=== PATIENT | male | born 1945 | race African-American/Black ===

== ENCOUNTER 2022-03-24 01:39 | Inpatient (IN) ==
[2022-03-24 02:49] LABS: Basophils % 0.4 %; Eosinophils # 0.3 K/mcL (0.0-0.6); Eosinophils % 6.8 %; Hematocrit 38.9 % (37.5-50.1); Hemoglobin 12.2 g/dL (12.9-16.9); Immature Granulocytes % 0.2 % (0-4); Lymphocytes # 1.6 K/mcL (0.6-4.6); Mean Corpuscular HGB Conc 31.4 g/dL (31.6-35.5); Mean Corpuscular Hemoglobin 26.9 pg (28.0-33.3); Mean Corpuscular Volume 85.7 fL (83.0-100.0); Mean Platelet Volume 11.4 fL (9.4-12.4); Monocytes # 0.5 K/mcL (0.0-1.3); Monocytes % 11.2 %; Neutrophils # 2.4 K/mcL (1.6-8.9); Nucleated Red Blood Cells 0.4 /100 WBC (0); Platelet Count 167 K/mcL (140-400); Red Blood Count 4.54 M/mcL (4.19-5.50); Red Cell Distribution Width 16.4 % (11.5-14.5); Segmented Neutrophils % 49.4 %; White Blood Count 4.8 K/mcL (4.3-11.1)
[2022-03-24 03:09] LABS: BUN/Creatinine Ratio 17 (6-26); Blood Urea Nitrogen 24 mg/dL (8-23); Calcium 9.6 mg/dL (8.6-10.3); Carbon Dioxide 23 mEq/L (23-29); Chloride 105 mEq/L (98-107); Glucose 108 mg/dL (70-105); Osmolality,Calculated 289 (280-300); Sodium 137 mEq/L (136-145); eGFR For African Americans > 60 (> 60); eGFR For Non-African Americans 50 (> 60)
[2022-03-24 03:18] LABS: Troponin I 0.22 ng/mL (< 0.04)
[2022-03-24] MEDS ORDERED: Aspirin 325 MG TABLET PO ONE (03:22)
[2022-03-24 03:46] LABS: Influenza A PCR Negative (Negative); Influenza B PCR Negative (Negative); Resp. Syncytial Virus PCR Negative (Negative)
[2022-03-24 03:54] LABS: SARS-CoV-2 by PCR (In House) Negative (Negative)
[2022-03-24] MEDS ORDERED: *HR* Heparin 5,000 UNIT/ML VIAL IVP ONE (04:35)
[2022-03-24] MEDS ORDERED: *HR* Heparin 5,000 UNIT/ML VIAL IVP PRN ×2 (04:35)
[2022-03-24] MEDS: Heparin 25,000UNIT/250ML 1/2NS 25,000 UNIT/250 ML IV.SOLN IVC SCH (04:44)
[2022-03-24] MEDS ORDERED: Perflutren Lipid Microsphere 1.3 ML in 0.9 % Sodium Chloride 8.7 ML IVP PRN (05:18)
[2022-03-24] MEDS ORDERED: Dextrose 4 GM Chewable Tablets PO PRN ×2 (05:20)
[2022-03-24] MEDS ORDERED: D5% in Water 1,000 ML IVC PRN (05:20)
[2022-03-24] MEDS ORDERED: *HR* Dextrose 50 % in Water (Syg) 50 ML SYRINGE IVP PRN (05:20)
[2022-03-24] MEDS ORDERED: Furosemide 20 MG/2 ML VIAL IVP ONE (05:51)
[2022-03-24] MEDS ORDERED: Ipratropium/Albuterol Neb 3 ML IH PRN (06:03)
[2022-03-24 07:16] LABS: INR 1.4; Prothrombin Time 15.4 Seconds (9.4-12.1)
[2022-03-24] MEDS ORDERED: Metoprolol XL (24 HR) Succ 25 MG TAB.ER.24H PO SCH (07:27)
[2022-03-24 07:51] LABS: Folate > 22.3 ng/mL (3.0-16.0); Vitamin B12 884 pg/mL (250-1100)
[2022-03-24] MEDS: Furosemide 20 MG/2 ML VIAL IVP SCH ×2 (08:05→20:17)
[2022-03-24 08:16] LABS: Estimated Average Glucose 123 mg/dl; Hemoglobin A1C 5.9 %
[2022-03-24] MEDS: Multivit/Ca/Min/Fe/FA 1 TAB TABLET PO SCH (08:36)
[2022-03-24] MEDS: Thiamine (B-1) 100 MG TABLET PO SCH (08:37)
[2022-03-24] MEDS: predniSONE 20 MG TABLET PO SCH (08:37)
[2022-03-24] MEDS ORDERED: Chlorhexidine Rinse 15 ML MOUTHWASH MM SCH (09:00)
[2022-03-24 10:12] LABS: Bilirubin,Urine Negative (Negative); Blood,Urine Negative (Negative); Clarity,Urine Clear (Clear); Color,Urine Colorless (Yellow); Glucose,Urine (UA) Normal (Normal); Ketones,Urine Negative (Negative); Leukocyte Esterase,Urine Negative (Negative); Nitrite,Urine Negative (Negative); Protein,Urine Negative (Neg-Trace); Specific Gravity,Urine 1.008 (1.010-1.025); Urobilinogen,Urine Normal (Normal)
[2022-03-24 10:33] LABS: Amphetamine Screen,Urine Negative ng/mL (Cutoff=1000); Barbiturate Screen,Urine Negative ng/mL (Cutoff=200); Benzodiazepines Screen,Urine Negative ng/mL (Cutoff=200); Cannabinoid Screen,Urine Negative ng/mL (Cutoff = 50); Cocaine Screen,Urine Negative ng/mL (Cutoff= 300); Opiate Screen,Urine Negative ng/mL (Cutoff=300); Phencyclidine Screen,Urine Negative ng/mL (Cutoff=25)
[2022-03-24] MEDS: Ipratropium/Albuterol Neb 3 ML IH SCH ×3 (11:06→20:35)
[2022-03-24] MEDS: Budesonide/Formoterol 160/4.5 1 PUFF INH IH SCH ×2 (11:08→20:35)
[2022-03-24 12:22] LABS: Heparin anti-factor XA UFH 0.64 IU/mL (0.30-0.70)
[2022-03-24 12:25] LABS: Activated Partial Thrombo Time 96.8 Seconds (26.0-36.0)
[2022-03-24 12:39] LABS: Troponin I 0.17 ng/mL (< 0.04)
[2022-03-24 13:01] LABS: Chol/HDL Ratio 2.1 (0-4.9); Thyroid Stimulating Hormone 2.105 mcIU/mL (0.340-5.600)
[2022-03-24] MEDS ORDERED: GuaiFENesin Liq 200 MG/10 ML UDC PO PRN (15:24)
[2022-03-24] MEDS: Mirtazapine 15 MG TABLET PO SCH (20:17)
[2022-03-25 03:35] LABS: Basophils % 0.2 %; Hematocrit 38.6 % (37.5-50.1); Hemoglobin 11.7 g/dL (12.9-16.9); Immature Granulocytes % 0.3 % (0-4); Lymphocytes % 16.3 %; Mean Corpuscular HGB Conc 30.3 g/dL (31.6-35.5); Mean Corpuscular Hemoglobin 26.1 pg (28.0-33.3); Mean Platelet Volume 11.4 fL (9.4-12.4); Monocytes # 0.6 K/mcL (0.0-1.3); Monocytes % 10.4 %; Neutrophils # 4.3 K/mcL (1.6-8.9); Platelet Count 179 K/mcL (140-400); Red Blood Count 4.49 M/mcL (4.19-5.50); Red Cell Distribution Width 16.4 % (11.5-14.5); Segmented Neutrophils % 72.8 %; White Blood Count 5.9 K/mcL (4.3-11.1)
[2022-03-25 03:58] LABS: BUN/Creatinine Ratio 19 (6-26); Blood Urea Nitrogen 23 mg/dL (8-23); Calcium 9.5 mg/dL (8.6-10.3); Carbon Dioxide 21 mEq/L (23-29); Chloride 105 mEq/L (98-107); Glucose 131 mg/dL (70-105); Magnesium 2.2 mg/dL (1.6-2.6); Osmolality,Calculated 285 (280-300); Phosphorous 3.1 mg/dL (2.7-4.5); Potassium 4.3 mEq/L (3.5-5.1); Sodium 135 mEq/L (136-145); eGFR For African Americans > 60 (> 60); eGFR For Non-African Americans 59 (> 60)
[2022-03-25] MEDS: Ipratropium/Albuterol Neb 3 ML IH SCH ×4 (04:02→21:53)
[2022-03-25] MEDS: Furosemide 20 MG/2 ML VIAL IVP SCH (08:03)
[2022-03-25] MEDS: Heparin 25,000UNIT/250ML 1/2NS 25,000 UNIT/250 ML IV.SOLN IVC SCH (08:04)
[2022-03-25] MEDS: predniSONE 20 MG TABLET PO SCH (08:07)
[2022-03-25] MEDS: Cholecalciferol (D-3) 1,000 UNIT (25MCG) TABLET PO SCH (08:07)
[2022-03-25] MEDS: Thiamine (B-1) 100 MG TABLET PO SCH (08:07)
[2022-03-25] MEDS: Multivit/Ca/Min/Fe/FA 1 TAB TABLET PO SCH (08:07)
[2022-03-25] MEDS: Aspirin 81 MG TAB.CHEW PO SCH (08:07)
[2022-03-25] MEDS ORDERED: Metoprolol XL (24 HR) Succ 50 MG TAB.ER.24H PO SCH (09:00)
[2022-03-25] MEDS: Budesonide/Formoterol 160/4.5 1 PUFF INH IH SCH ×2 (10:17→21:53)
[2022-03-25] MEDS: Azithromycin 250 MG TABLET PO SCH (12:13)
[2022-03-25] MEDS: Furosemide 20 MG TABLET PO SCH (16:23)
[2022-03-25] MEDS: Mirtazapine 15 MG TABLET PO SCH (20:42)
[2022-03-25] MEDS: Metoprolol XL (24 HR) Succ 50 MG TAB.ER.24H PO SCH (20:42)
[2022-03-26 02:18] LABS: Hematocrit 36.5 % (37.5-50.1); Hemoglobin 11.2 g/dL (12.9-16.9); Mean Corpuscular HGB Conc 30.7 g/dL (31.6-35.5); Mean Corpuscular Hemoglobin 26.4 pg (28.0-33.3); Mean Corpuscular Volume 85.9 fL (83.0-100.0); Mean Platelet Volume 11.6 fL (9.4-12.4); Platelet Count 186 K/mcL (140-400); Red Blood Count 4.25 M/mcL (4.19-5.50); Red Cell Distribution Width 16.8 % (11.5-14.5); White Blood Count 7.1 K/mcL (4.3-11.1)
[2022-03-26 02:34] LABS: BUN/Creatinine Ratio 23 (6-26); Blood Urea Nitrogen 27 mg/dL (8-23); Calcium 9.3 mg/dL (8.6-10.3); Carbon Dioxide 21 mEq/L (23-29); Chloride 104 mEq/L (98-107); Glucose 132 mg/dL (70-105); Magnesium 2.1 mg/dL (1.6-2.6); Osmolality,Calculated 285 (280-300); Potassium 4.4 mEq/L (3.5-5.1); Sodium 134 mEq/L (136-145); eGFR For African Americans > 60 (> 60); eGFR For Non-African Americans > 60 (> 60)
[2022-03-26] MEDS: Ipratropium/Albuterol Neb 3 ML IH SCH ×2 (04:29→10:37)
[2022-03-26] MEDS: predniSONE 20 MG TABLET PO SCH (08:24)
[2022-03-26] MEDS: Furosemide 20 MG TABLET PO SCH (08:24)
[2022-03-26] MEDS: Thiamine (B-1) 100 MG TABLET PO SCH (08:24)
[2022-03-26] MEDS: Cholecalciferol (D-3) 1,000 UNIT (25MCG) TABLET PO SCH (08:24)
[2022-03-26] MEDS: Multivit/Ca/Min/Fe/FA 1 TAB TABLET PO SCH (08:24)
[2022-03-26] MEDS: Azithromycin 250 MG TABLET PO SCH (08:24)
[2022-03-26] MEDS: Metoprolol XL (24 HR) Succ 50 MG TAB.ER.24H PO SCH (08:24)
[2022-03-26] MEDS: Aspirin 81 MG TAB.CHEW PO SCH (08:24)
[2022-03-26] MEDS: Budesonide/Formoterol 160/4.5 1 PUFF INH IH SCH (10:38)
[2022-03-26 10:48] VITALS: BP 116/76; PULSE 86; TEMP 97.8; O2SAT 95
[2022-03-26 11:58] LABS: Influenza A PCR Negative (Negative); Influenza B PCR Negative (Negative); Resp. Syncytial Virus PCR Negative (Negative)
[2022-03-26 12:20] LABS: SARS-CoV-2 by PCR (In House) Negative (Negative)
== END 2022-03-26 13:47 | DRG 190 ==
LOC: 3BNU 01:39 → EMEROOARM 01:39 → SUATTDRO 04:42 → 3BNU 04:48
PROVIDERS: ADMIT Internal Medicine; ATTEND Internal Medicine

== ENCOUNTER 2022-08-21 02:06 | Inpatient (IN) ==
[2022-08-21 03:46] LABS: Albumin 3.8 g/dL (3.5-5.7); Albumin/Globulin Ratio 1.1 (1.1-2.2); Bilirubin,Total 0.4 mg/dL (0.3-1.0); Calcium 9.8 mg/dL (8.6-10.3); Globulin 3.5 g/dL (2.4-3.5); Potassium 4.2 mEq/L (3.5-5.1); Total Protein 7.3 g/dL (6.4-8.9); Troponin I 0.04 ng/mL (< 0.04)
[2022-08-21 03:47] LABS: Basophils % 0.4 %; Eosinophils # 0.1 K/mcL (0.0-0.6); Eosinophils % 1.6 %; Hematocrit 42.1 % (37.5-50.1); Hemoglobin 13.3 g/dL (12.9-16.9); Immature Granulocytes % 0.5 % (0-4); Lymphocytes # 1.2 K/mcL (0.6-4.6); Lymphocytes % 22.1 %; Mean Corpuscular HGB Conc 31.6 g/dL (31.6-35.5); Mean Corpuscular Hemoglobin 29.6 pg (28.0-33.3); Mean Corpuscular Volume 93.6 fL (83.0-100.0); Mean Platelet Volume 10.2 fL (9.4-12.4); Monocytes # 0.8 K/mcL (0.0-1.3); Monocytes % 14.2 %; Neutrophils # 3.4 K/mcL (1.6-8.9); Platelet Count 163 K/mcL (140-400); Red Cell Distribution Width 13.8 % (11.5-14.5); Segmented Neutrophils % 61.2 %; White Blood Count 5.6 K/mcL (4.3-11.1)
[2022-08-21] MEDS ORDERED: Ondansetron 4 MG/2 ML VIAL IVP PRN (04:44)
[2022-08-21] MEDS ORDERED: Naloxone 0.4 MG/ML INJ IVP PRN (04:44)
[2022-08-21] MEDS ORDERED: Acetaminophen 325 MG TABLET PO PRN (04:44)
[2022-08-21] MEDS ORDERED: *HR* Dextrose 50 % in Water (Syg) 50 ML SYRINGE IVP PRN (04:49)
[2022-08-21] MEDS ORDERED: D5% in Water 1,000 ML IVC PRN (04:49)
[2022-08-21] MEDS ORDERED: Dextrose Gel 15 GM/37.5 ML TUBE PO PRN ×2 (04:49)
[2022-08-21 06:06] LABS: Influenza A PCR Negative (Negative); Influenza B PCR Negative (Negative); Resp. Syncytial Virus PCR Negative (Negative)
[2022-08-21 06:15] LABS: SARS-CoV-2 by PCR (In House) Negative (Negative)
[2022-08-21] MEDS ORDERED: 0.9 % Sodium Chloride 500 ML IVC SCH (06:30)
[2022-08-21] MEDS: Metoprolol XL (24 HR) Succ 50 MG TAB.ER.24H PO SCH ×2 (09:34→21:14)
[2022-08-21] MEDS ORDERED: MOM Conc 10 ML UD.LIQ PO PRN (16:40)
[2022-08-21] MEDS ORDERED: GuaiFENesin Liq 200 MG/10 ML UDC PO PRN (16:40)
[2022-08-21] MEDS ORDERED: Ipratropium/Albuterol Neb 3 ML IH PRN (19:34)
[2022-08-21] MEDS: Budesonide/Formoterol 160/4.5 1 PUFF INH IH SCH (19:43)
[2022-08-21] MEDS: Mirtazapine 15 MG TABLET PO SCH (21:14)
[2022-08-22] MEDS: Budesonide/Formoterol 160/4.5 1 PUFF INH IH SCH ×2 (07:25→21:40)
[2022-08-22] MEDS: Aspirin Enteric Coated 81 MG Tablet PO SCH (09:35)
[2022-08-22] MEDS: Metoprolol XL (24 HR) Succ 50 MG TAB.ER.24H PO SCH ×2 (09:35→20:56)
[2022-08-22] MEDS: Famotidine 20 MG TABLET PO SCH (09:35)
[2022-08-22] MEDS: Cholecalciferol (D-3) 1,000 UNIT (25MCG) TABLET PO SCH (09:35)
[2022-08-22 15:10] LABS: Basophils % 0.4 %; Eosinophils # 0.2 K/mcL (0.0-0.6); Eosinophils % 3.6 %; Hematocrit 43.5 % (37.5-50.1); Hemoglobin 13.8 g/dL (12.9-16.9); Immature Granulocytes % 0.6 % (0-4); Lymphocytes # 1.4 K/mcL (0.6-4.6); Lymphocytes % 28.5 %; Mean Corpuscular HGB Conc 31.7 g/dL (31.6-35.5); Mean Corpuscular Hemoglobin 29.8 pg (28.0-33.3); Mean Platelet Volume 9.6 fL (9.4-12.4); Monocytes # 0.5 K/mcL (0.0-1.3); Monocytes % 10.9 %; Neutrophils # 2.8 K/mcL (1.6-8.9); Platelet Count 151 K/mcL (140-400); Red Blood Count 4.63 M/mcL (4.19-5.50); White Blood Count 4.9 K/mcL (4.3-11.1)
[2022-08-22 15:29] LABS: Calcium 9.7 mg/dL (8.6-10.3); Magnesium 1.9 mg/dL (1.6-2.6); Potassium 4.1 mEq/L (3.5-5.1)
[2022-08-22] MEDS: Mirtazapine 15 MG TABLET PO SCH (20:56)
[2022-08-23] MEDS: Budesonide/Formoterol 160/4.5 1 PUFF INH IH SCH ×2 (07:29→20:18)
[2022-08-23] MEDS: Aspirin Enteric Coated 81 MG Tablet PO SCH (10:28)
[2022-08-23] MEDS: Famotidine 20 MG TABLET PO SCH (10:28)
[2022-08-23] MEDS: Cholecalciferol (D-3) 1,000 UNIT (25MCG) TABLET PO SCH (10:28)
[2022-08-23] MEDS: Metoprolol XL (24 HR) Succ 50 MG TAB.ER.24H PO SCH ×2 (10:28→19:44)
[2022-08-23 15:18] LABS: Calcium 9.9 mg/dL (8.6-10.3); Potassium 4.5 mEq/L (3.5-5.1)
[2022-08-23] MEDS: Mirtazapine 15 MG TABLET PO SCH (19:44)
[2022-08-24 05:02] LABS: Calcium 10.1 mg/dL (8.6-10.3); Potassium 4.3 mEq/L (3.5-5.1)
[2022-08-24] MEDS: Metoprolol XL (24 HR) Succ 50 MG TAB.ER.24H PO SCH ×2 (08:39→22:23)
[2022-08-24] MEDS: Famotidine 20 MG TABLET PO SCH (08:39)
[2022-08-24] MEDS: Aspirin Enteric Coated 81 MG Tablet PO SCH (08:39)
[2022-08-24] MEDS: Cholecalciferol (D-3) 1,000 UNIT (25MCG) TABLET PO SCH (08:39)
[2022-08-24] MEDS: Budesonide/Formoterol 160/4.5 1 PUFF INH IH SCH ×2 (10:31→20:15)
[2022-08-24] MEDS: Furosemide 20 MG TABLET PO SCH (11:09)
[2022-08-24] MEDS: Mirtazapine 15 MG TABLET PO SCH (22:23)
[2022-08-24] MEDS: Sacubitril/Valsartan 24/26 MG 1 TABLET PO SCH (22:23)
[2022-08-25 05:47] LABS: Basophils % 0.4 %; Eosinophils # 0.2 K/mcL (0.0-0.6); Eosinophils % 3.1 %; Hematocrit 44.8 % (37.5-50.1); Hemoglobin 14.5 g/dL (12.9-16.9); Immature Granulocytes % 0.7 % (0-4); Lymphocytes # 1.8 K/mcL (0.6-4.6); Lymphocytes % 32.2 %; Mean Corpuscular HGB Conc 32.4 g/dL (31.6-35.5); Mean Corpuscular Hemoglobin 29.8 pg (28.0-33.3); Mean Platelet Volume 9.9 fL (9.4-12.4); Monocytes # 0.5 K/mcL (0.0-1.3); Monocytes % 9.2 %; Platelet Count 162 K/mcL (140-400); Red Blood Count 4.87 M/mcL (4.19-5.50); Red Cell Distribution Width 13.8 % (11.5-14.5); Segmented Neutrophils % 54.4 %; White Blood Count 5.5 K/mcL (4.3-11.1)
[2022-08-25 06:08] LABS: Calcium 9.9 mg/dL (8.6-10.3)
[2022-08-25] MEDS: Budesonide/Formoterol 160/4.5 1 PUFF INH IH SCH (07:41)
[2022-08-25] MEDS: Aspirin Enteric Coated 81 MG Tablet PO SCH (07:51)
[2022-08-25] MEDS: Metoprolol XL (24 HR) Succ 50 MG TAB.ER.24H PO SCH (07:51)
[2022-08-25] MEDS: Famotidine 20 MG TABLET PO SCH (07:51)
[2022-08-25] MEDS: Cholecalciferol (D-3) 1,000 UNIT (25MCG) TABLET PO SCH (07:51)
[2022-08-25] MEDS: Sacubitril/Valsartan 24/26 MG 1 TABLET PO SCH (07:51)
[2022-08-25] MEDS: Furosemide 20 MG TABLET PO SCH (07:51)
[2022-08-25 11:24] VITALS: TEMP 97.8
[2022-08-25 11:41] VITALS: BP 147/56; PULSE 72; O2SAT 96
== END 2022-08-25 15:43 | disposition home or self-care (01) | DRG 682 ==
LOC: EMEROOARM 02:06 → 2NENU 02:06 → SUATTDRO 04:43 → 2NENU 05:45 → SUATTDRO 08-23 12:30
PROVIDERS: ADMIT Internal Medicine; ATTEND Internal Medicine